=== PATIENT | male | born 1955 | race Caucasian/White ===

== ENCOUNTER 2022-09-03 20:13 | Emergency (ER) | payer OTHER ==
[~2022-09-03] VITALS: Ht 175.3 cm; Wt 52.2 kg
[2022-09-03] MEDS ORDERED: methylPREDNISolone SOD SUCC 125 MG/2 ML VIAL IV ONE (20:30)
[2022-09-03] MEDS ORDERED: ALBUTEROL SULFATE 2.5 MG/3 ML NEBU NEB ONE (20:30)
[2022-09-03] MEDS ORDERED: IPRATROPIUM BROMIDE 0.5 MG/2.5 ML NEBU NEB ONE (20:30)
--- NOTE | 2022-09-03 20:37 | NUR ---
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 Bedside EKG done for ER provider review, #20g established in right upper forearm, blood collected and sent to lab. Patient has been placed on bi-pap and positioned for comfort, will continue to monitor. Radiology at bedside.
[2022-09-03] MEDS ORDERED: CEFTRIAXONE /D5W 50ML IVPB **ER PYXIS IV ONE (20:41)
[2022-09-03] MEDS ORDERED: methylPREDNISolone SOD SUCC 125 MG/2 ML VIAL ONE (20:41)
[2022-09-03 20:43] LABS: HEMATOCRIT 44.8 % (36.7-47.1); MEAN CORPUSCULAR HEMOGLOBIN 31.3 uug (23.8-33.4); MEAN CORPUSCULAR VOLUME 95.1 fL (73.0-96.2); PLATELET COUNT (AUTO) 259 K/uL (152-348)
[2022-09-03] MEDS ORDERED: IPRATROPIUM BROMIDE 0.5 MG/2.5 ML NEBU ONE (20:43)
[2022-09-03] MEDS ORDERED: ALBUTEROL SULFATE 2.5 MG/3 ML NEBU ONE (20:43)
[2022-09-03] MEDS ORDERED: CEFTRIAXONE 1 G in IV DEXTROSE 5% 50 ML IV ONE (20:45)
[2022-09-03 20:52] LABS: CARBON DIOXIDE 24 mmol/L (21-32); CHLORIDE 99 mmol/L (98-107); POTASSIUM 4.3 mmol/L (3.5-5.1); UREA NITROGEN, BLOOD 20 mg/dL (7-18)
[2022-09-03] MEDS ORDERED: SUMA50TA17 PO (21:03)
[2022-09-03] MEDS ORDERED: TIOT4MIS3 INH (21:03)
[2022-09-03] MEDS ORDERED: EFAV1TAB (21:03)
[2022-09-03] MEDS ORDERED: SILD20TA2 (21:03)
[2022-09-03 21:05] LABS: ALANINE AMINOTRANSFERASE 27 U/L (16-63); ALKALINE PHOSPHATASE 147 U/L (50-136); ASPARTATE AMINOTRANSFERASE 27 U/L (15-37); BILIRUBIN,DIRECT 0.1 mg/dL (0.0-0.2); BILIRUBIN,TOTAL 0.5 mg/dL (0.2-1.0)
[2022-09-03 21:25] LABS: LYMPHOCYTES % (MANUAL) 5 % (20-40); MONOCYTES % (MANUAL) 3 % (2-10); NEUTROPHILS % (MANUAL) 92 % (42-75)
--- NOTE | 2022-09-03 21:27 | NUR ---
Patient c/o dry mouth with BI-PAP in use MD at bedside,O2 applied at 4L at this time, will continue to monitor.
[2022-09-03] MEDS ORDERED: IV NORMAL SALINE 500 ML IV ONE (21:30)
--- NOTE | 2022-09-03 21:35 | NUR ---
Received telephone call from [facility], requested information provided, michael DAVIS to call back to speak with ER physician.
--- NOTE | 2022-09-03 21:41 | NUR ---
ER provider talking with Foster DAVIS.
--- NOTE | 2022-09-03 22:19 | NUR ---
Repositioned for comfort, aware will be transfered to [place], no s/s of any distress noted at this time.
--- NOTE | 2022-09-03 22:45 | NUR ---
LAB AT BEDSIDE.
--- NOTE | 2022-09-04 00:55 | NUR ---
Patient repositioned for comfort, continues to await Morton to assign a bed. No voiced c/o pain or discomfort at this time.
[2022-09-04 00:57] VITALS: O2SAT 99
--- NOTE | 2022-09-04 01:00 | NUR ---
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
--- NOTE | 2022-09-04 01:19 | NUR ---
Report given to Miguel at this tie, patient remains stable for transport.
== END 2022-09-04 02:24 | disposition short-term general hospital (02) ==
LOC: ER 20:19
DX: J44.1 Chronic obstructive pulmonary disease with (acute) exacerbation (principal); R09.02 Hypoxemia; R07.89 Other chest pain; Z79.899 Other long term (current) drug therapy; Z20.822 Contact with and (suspected) exposure to COVID-19
CPT/HCPCS: 99291; 96365; 71045; 96361; 96375; 87426; 80076; 80048; 83880; 85025; 87040; 84484; 36415; 93005; 94640; 83605 ×2; 85007; J0696; J2930; J7040; 70030-TC; A4663; J3590